=== PATIENT | female | born 1970 | race Caucasian/White ===

== ENCOUNTER 2019-06-24 16:46 | Emergency (ER) | payer OTHER ==
--- NOTE | 2019-06-24 16:48 | ERPHSYRPT ---
- History of Present Illness Time Seen by Provider: 06/24/19 16:48 Source: patient, family Exam Limitations: no limitations Physician History: 49 y/o obese white female presents with coughing and chest congestion for 3 days. denies fever but has one now. no cp, no n/v/d. no myalgias or arthralgias. pt continues to smoke cigarettes. Timing/Duration: day(s) (3) Cough Quality/Degree: mild, dry cough Possible Cause: occasional episodes Modifying Factors: Improves With: coughing Associated Symptoms: cough, sore throat - Review of Systems Constitutional: No Symptoms Eyes: No Symptoms Ears, Nose, & Throat: No Symptoms Respiratory: Cough Cardiac: No Symptoms Abdominal/Gastrointestinal: No Symptoms Genitourinary Symptoms: No Symptoms Musculoskeletal: No Symptoms Skin: No Symptoms Neurological: No Symptoms Psychological: No Symptoms Endocrine: No Symptoms Hematologic/Lymphatic: No Symptoms Immunological/Allergic: No Symptoms All Other Systems: Reviewed and Negative - Past Medical History Neurological History: No Pertinent History ENT History: No Pertinent History Cardiac History: No Pertinent History Respiratory History: No Pertinent History Endocrine Medical History: No Pertinent History Musculoskeletal History: No Pertinent History GI Medical History: No Pertinent History History: No Pertinent History Psycho-Social History: No Pertinent History Female Reproductive Disorders: No Pertinent History - Past Surgical History Neuro Surgical History: No Pertinent History Cardiac: No Pertinent History Respiratory: No Pertinent History Gastrointestinal: No Pertinent History Genitourinary: No Pertinent History Musculoskeletal: No Pertinent History Female Surgical History: No Pertinent History - Social History Smoking Status: Current every day smoker - Physical Exam General Appearance: no apparent distress, alert, anxiety Eye Exam: PERRL/EOMI Ears, Nose, Throat Exam: normal ENT inspection, moist mucous membranes Neck Exam: normal inspection, non-tender, supple, full range of motion Respiratory Exam: normal breath sounds, lungs clear, airway intact, No chest tenderness, No respiratory distress Cardiovascular Exam: regular rate/rhythm, normal heart sounds, normal peripheral pulses Gastrointestinal/Abdomen Exam: soft, normal bowel sounds, No tenderness Pelvic Exam: not done Rectal Exam: not done Back Exam: normal inspection, normal range of motion, No CVA tenderness, No vertebral tenderness Extremity Exam: normal inspection, normal range of motion, pelvis stable Neurologic Exam: alert, oriented x 3, cooperative, 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 take medications as prescribed. Prescriptions: Albuterol 8 gm Mdi Hfa [Ventolin Hfa MDI] 8 gm IH Q4H #1 hfa.aer.ad Azithromycin 250 mg [Zithromax 250 MG TABLET] 250 mg PO ZPACK #6 tablet Benzonatate [Tessalon Perle] 200 mg PO TID #12 capsule Prednisone 10 mg [Deltasone 10 mg] 10 mg PO TID #12 tablet
[2019-06-24] MEDS ORDERED: solu-MEDROL 125 MG IM ONE (17:53)
[2019-06-24] MEDS ORDERED: Rocephin 1000 MG INJ IM ONE (17:54)
[2019-06-24 17:58] VITALS: BP 115/51
[2019-06-24] MEDS ORDERED: solu-MEDROL 125 MG ONE (18:02)
[2019-06-24] MEDS ORDERED: Rocephin 1000 MG INJ ONE (18:03)
[2019-06-24 18:33] VITALS: PULSE 78; O2SAT 96
== END 2019-06-24 18:32 | disposition home or self-care (01) ==
LOC: ED 16:46
DX: J40 Bronchitis, not specified as acute or chronic (principal); R05 Cough; R09.89 Other specified symptoms and signs involving the circulatory and respiratory systems
CPT/HCPCS: 96372; 99284; J0696; J2930